=== PATIENT | male | born 1985 | race African-American/Black ===

== ENCOUNTER 2024-04-17 10:12 | Emergency (ER) | payer OTHER ==
[~2024-04-17] VITALS: Ht 172.7 cm; Wt 83.9 kg
[2024-04-17] MEDS ORDERED: TERBUTALINE SULFATE 1 MG/ML VIAL ONE (10:43)
[2024-04-17] MEDS: TERBUTALINE SULFATE 1 MG/ML VIAL SQ STA (10:47)
[2024-04-17] MEDS ORDERED: PHENYLEPHRINE 10 MG/ML VIAL ONE (10:49)
[2024-04-17] MEDS ORDERED: LIDOCAINE 1% INJ 50 ML MDV IJ ONE (10:49)
[2024-04-17] MEDS: PHENYLEPHRINE 10 MG/ML VIAL IV ONE (11:43)
[2024-04-17] MEDS: IV NS 0.9% 100 ML BAG IV ONE (11:43)
[2024-04-17] MEDS: LIDOCAINE 1% INJ 50 ML MDV IJ ONE (11:43)
[2024-04-17 12:44] VITALS: BP 140/87; TEMP 98.1; O2SAT 100
== END 2024-04-17 12:45 | disposition home or self-care (01) ==
LOC: ER 10:12
DX: N48.30 Priapism, unspecified (principal); F32.A Depression, unspecified; F41.9 Anxiety disorder, unspecified; Z86.69 Personal history of other diseases of the nervous system and sense organs
CPT/HCPCS: 54220; 96372; 99284; J3105; J3490; J7030